=== PATIENT | female | born 1945 | race Caucasian/White ===

== ENCOUNTER → 2018-03-14 | Outpatient (CLI) | payer OTHER ==
[~2018-03-14] MED LIST: ACETAMINOPHEN325 M1 PO; ACIDOPHILUS1 EAC3 PO; CITRUCEL CAPLET1 TA1 PO; COMBIVENT INHALER; FLEXERIL PO; IRON PO; LIPITOR20 MG PO; MULTI-VITAMIN1 EAC5 PO; NABUMETONE 750750 M1 PO; NOVOLOG100 UNIT/1 SUBQ; PRILOSEC40 MG PO; PROZAC 20 MG20 MG PO; SUPER B COMPLE1 EAC2 PO; ULTRAM 50MG TAB50 MG PO
== END ==
LOC: M.RAD 10:00
DX: Z12.31 Encounter for screening mammogram for malignant neoplasm of breast (principal)